=== PATIENT | male | born 1965 | race Caucasian/White ===

== ENCOUNTER 2022-01-31 09:10 | Outpatient (RCR) | payer OTHER, SELFPAY ==
--- NOTE | 2022-01-31 10:57 | PTOPEVAL ---
Thank you for referring suraj gonsales to [facility].? The patient is scheduled to be seen for therapy? ____x/week for ___ weeks. Please review, sign, date and return this plan of care VITO. I agree with and certify that the following plan of care is medically necessary. Referring Physician Date Admitting Provider: Attending Provider: FITZ WEINSTEIN Referring Provider: OLIVE Outpatient Evaluation Start: 01/31/22 09:54 Freq: Status: Active Protocol: Document 01/31/22 09:55 [facility] (Rec: 01/31/22 10:55 [facility] [id number]) Therapy Assessment Status Assessment Status Assessment Status Evaluation Evaluation Information Problem Diagnosis L shoulder pain Onset 08/25/21 Additional Evaluation Detail quick dash = 11% functionally declined Subjective Information patient reports he injured the Query Text:As Reported By Patient/ L shoulde rmoving a heavy Family armstrong at his work. he reports the ground wa wet and he slipped. he reports he felt a pop in the L shoulder. he reports he had xrays of the shoulder. he reports no fractures noted, but degenerative changes were seen . he reports no mri as of this date. he reports he was in a sling for about 2 days. he reports no injections. he reports he cane move the arm, but reports he has pain reaching behind his back and overhead. he reports he is cautious to lift or grab items with the L hand. he reports difficulty puting jacket and shirts on and off. Prior Level of Function Comments Additional Prior Level of Function prior to injury, no issues Comments with the L shoulder. he reports he was able to lift 30lbs or more with the arms to shoulder level and above for 10+ reps. Pain Assessment Timing of Pain Assessment Timing of Pain Assessment Assessment Pain Scale Pain Scale Used Numeric (1 - 10) Self Report Pain Assessment Left Shoulder(s) Reported Pain Level 2 Pain Score Pain Score 2: Self Report Interventions Used Interventions Used By Clinicians Education,Medication,Rest Upper Extremity Range of Mo
--- NOTE | 2022-03-07 10:49 | PTOPEVAL ---
Thank you for referring suraj gonsales to [facility].? The patient is scheduled to be seen for therapy? ____x/week for ___ weeks. Please review, sign, date and return this plan of care VITO. I agree with and certify that the following plan of care is medically necessary. Referring Physician Date Admitting Provider: Attending Provider: FITZ WEINSTEIN Referring Provider: OLIVE Outpatient Evaluation Start: 01/31/22 09:54 Freq: Status: Active Protocol: Document 03/07/22 09:45 [facility] (Rec: 03/07/22 10:48 [facility] [id number]) Evaluation Information Problem Diagnosis L shoulder pain Onset 08/25/21 Subjective Information patient reports he continues Query Text:As Reported By Patient/ to have discomfort in the L Family shoulder at all times and increased with reaching behind back, lifting, and reachign overhead. he report she continues to work daily and does have to lift. he reports he is compliant with his HEP at home. Pain Assessment Timing of Pain Assessment Timing of Pain Assessment Assessment Pain Scale Pain Scale Used Numeric (1 - 10) Self Report Pain Assessment Left Shoulder(s) Reported Pain Level 3 Pain Description Aching Greatest Pain Intensity 5 Pain Score Pain Score 3: Self Report Interventions Used Interventions Used By Clinicians Activity or ADL's,Dry Needling ,Education,Electrical Stimulation,Exercise,Heat, Manual Therapy Techniques Upper Extremity Range of Motion Scapular/ Shoulder Range of Motion Left Shoulder Flexion - Active 138 Shoulder Flexion - Passive 141 Shoulder Medial Rotation - Active 60 Query Text:Reach Behind the Back Shoulder Lateral Rotation - Active 42 Query Text:Reach Behind the Head Scapular/Shoulder Range of Motion rotation measured in scapular Comments plane again, with severe increased pain noted with ER of the L shoulder. continued mm guarding and firm end feel with prom of the L shoulder in all directions. Upper Extremity Muscle Strength Testing Scapular/Shoulder Left Shoulder Flexion Strength 5 Normal Shoulder Extension Strength 5 Normal Shoulder Abduction Strength 4- Good - Shoulder Medial Rotation Strength 5 Normal Shoulder Lateral Rotation Strength 5 Normal Shoulder Strength Comments pain n
== END 2022-03-07 17:00 | disposition home or self-care (01) ==
LOC: CHSPT 09:10
DX: M25.512 Pain in left shoulder (principal); G89.29 Other chronic pain
CPT/HCPCS: 97014; 97110; 97140; 97161; G0283

== ENCOUNTER 2022-07-04 08:38 | Outpatient (RCR) | payer OTHER, SELFPAY ==
--- NOTE | 2022-07-04 11:22 | PTOPEVAL ---
Thank you for referring Dm Taylor to [facility].? The patient is scheduled to be seen for therapy? 1-2x/week for 7 visits. Please review, sign, date and return this plan of care VITO. I agree with and certify that the following plan of care is medically necessary. Referring Physician Date Admitting Provider: Attending Provider: Tiffany Price, PA Referring Provider: *PT Outpatient Evaluation Start: 07/04/22 07:47 Freq: Status: Active Protocol: Document 07/04/22 08:55 [facility] [address] (Rec: 07/04/22 11:20 [facility] [address] [id number]) Therapy Assessment Status Assessment Status Assessment Status Evaluation Evaluation Information Problem Diagnosis Bilateral shoulder pain Onset 07/31/2021 Subjective Information Pt reports past injory in Query Text:As Reported By Patient/ July 2021 when he lifted Family up a heavy armstrong ball and felt a pop in his L shoulder. He participated in PT here for awhile after the injury and notes significant improvements in function. Shortly after, he received an MRI and Xrays and visited Dr. Price at [facility] who told him that he is bone on bone in both shoulders and has a L RTC and biceps tear. They discussed potential options, but pt does not desire surgery at this time. They discussed continuing PT for lasting impairments. Pt does not experience much pain but has difficulty when reaching behind his back with his L arm . He is able to complete most all of his activities without pain or difficulty. He wants to be able to maintain his current activity level for work and his hobbies. Prior Level of Function Activity Level (Last 3 Months) Occupation Gunsmith Hand Dominance Right Activity of Daily Living Ability Independent Indoor/Home Mobility Independent Community Mobility Independent Stairs Ability Independent Functional Cognition (Planning, Shopping Independent , Taking Medications) Cooking Yes Cleaning Yes
--- NOTE | 2022-08-08 09:11 | PTOPPROG ---
Evaluation Information Assessment Status Progress Diagnosis Bilateral shoulder pain, low back pain Onset 07/31/2021 Subjective Information Pt reports significant improvements in L shoulder however presents with significant back pain starting yesterday. He reports no insidious onset, but does report he was doing a lot of twisting yesterday. He reports that he has never had back pain in the past besides soreness. Pt reports he didn't sleep very well last night because of pain. Pain is mostly R sided. Denies N/T. Assessment PT Clinical Summary Pt presents to physical therapy with significant improvements in shoulder pain, range of motion, and quality of life since his initial evaluation. However, pt reports acute low back pain starting yesterday and therefore back was generally assessed this date. Due to findings, PT suspects muscle or soft tissue strain of the R low back. Pt was provided with exercises to improve general core stability and lower back mobility within his tolerance. Pt plans to continue with remaining 3 visits focusing on both his shoulder and low back. Plan of Care PT Services Indicated Yes Treatment Frequency and 1x week for 3 visits Duration These treatments will address the objective and functional deficits as defined above. The patient will be advanced safely and appropriately in order for the patient to progress towards his/her prior level of function. Additional exercises will be introduced and as well as a comprehensive home exercise program upon discharge, if needed, ?to ensure carryover of functional gains achieved in the clinic. This treatment plan has been reviewed and agreement upon by the patient.
== END 2022-08-08 11:29 | disposition home or self-care (01) ==
LOC: CHSPT 08:38
PROVIDERS: Visit Provider Physician Assistant
DX: M25.511 Pain in right shoulder (principal); M25.512 Pain in left shoulder; M75.41 Impingement syndrome of right shoulder; M75.42 Impingement syndrome of left shoulder; M19.011 Primary osteoarthritis, right shoulder; M19.012 Primary osteoarthritis, left shoulder; S46.212A Strain of muscle, fascia and tendon of other parts of biceps, left arm, initial encounter
CPT/HCPCS: 97014; 97110; 97140; 97161; G0283